=== PATIENT | female | born 1995 | race Caucasian/White ===

== ENCOUNTER 2018-07-08 09:28 | Emergency (ER) | payer BC ==
--- NOTE | 2018-07-08 10:14 | ER Report ---
History and Physical Time Seen By MD: 09:40 Hx. of Stated Complaint: FOUND OUT SHE WAS LAST WEEK, LMP 05/14, started bleeding last evening with worsening over the night and decrease this a.m. HPI/ROS CHIEF COMPLAINT: vaginal bleeding HISTORY OF PRESENT ILLNESS: Pt is G1 LMP 13 May who presents with vaginal ble eding and mild cramping since last night. She is spotting, has gone through 1 pad, with mild cramping that is improving. No change in urination, no diarrhea/constipation. No nausea/vomiting. No prior STI's, no hx clotting in family. REVIEW OF SYSTEMS: Constitutional: No fever, no chills. Eyes: No discharge. ENT: No sore throat. Cardiovascular: No chest pain, no palpitations. Respiratory: No cough, no shortness of breath. Gastrointestinal: No abdominal pain, no vomiting. Genitourinary: No hematuria. Musculoskeletal: No back pain. Skin: No rashes. Neurological: No headache. Remainder of the 14 system rev: Yes Allergies: Coded Allergies: No Known Drug Allergies (Unverified , 07/08/18) Reviewed Nurses Notes: Yes Hx Smoking: No Constitutional Vital Sign - Last 24 Hours 07/08/18 07/08/18 07/08/18 07/08/18 09:28 09:31 09:36 09:42 Temp 98.3 Pulse ??? 93 Resp 16 B/P (MAP) 124/74 (91) 140/88 (105) 140/88 Pulse Ox 96 O2 Delivery Room Air 07/08/18 07/08/18 07/08/18 07/08/18 09:43 09:58 10:02 10:13 Pulse 104 95 94 B/P (MAP) 108/76 (87) Pulse Ox 96 97 97 07/08/18 07/08/18 07/08/18 07/08/18 10:28 10:30 10:43 11:21 Pulse 84 96 B/P (MAP) 103/71 (82) 122/60 (80) Pulse Ox 97 97 Physical Exam General Appearance: The patient is alert, has no immediate need for airway protection and no signs of toxicity. [ ] Eyes: Pupils equal and round no pallor or injection. ENT, Mouth: Mucous membranes are moist. Respiratory: There are no retractions, lungs are clear to auscultation. Cardiovascular: Regular rate and rhythm. Gastrointestinal: Abdomen is soft and non tender, no masses, bowel sounds normal. Neurological: alert, oriented, nad Skin: Warm and dry, no rashes. Musculoskeletal: Extremities are nontender, nonswollen and have full range of motion. - moderate blood in vault, some extruding from os; os closed. No masses, or adnex ttp DIFFERENTIAL DIAGNOSIS: After history and physical exam differential diagnosis was considered for ectopic, miscarriage, sti or other emergent etiology Medical Decision Making Data Points Result Diagram: 07/08/18 1000 Laboratory Hematology Test 07/08/18 10:00 07/08/18 11:22 Red Blood Count 5.01 M/uL (4.17-5.56) Mean Corpuscular Volume 94.8 fL (80.0-96.0) Mean Corpuscular Hemoglobin 32.6 pg (26.0-33.0) Mean Corpuscular Hemoglobin Concent 34.4 g/dL (32.0-36.0) Red Cell Distribution Width 13.6 % (11.5-14.5) Mean Platelet Volume 9.3 fL (7.2-11.1) Neutrophils (%) (Auto) 69.1 % (39.4-72.5) Lymphocytes (%) (Auto) 23.2 % (17.6-49.6) Monocytes (%) (Auto) 7.0 % (4.1-12.4) Eosinophils (%) (Auto) 0.4 % (0.4-6.7) Basophils (%) (Auto) 0.3 % (0.3-1.4) Nucleated RBC Relative Count (auto) 0.0 /100WBC Neutrophils # (Auto) 4.7 K/uL (2.0-7.4) Lymphocytes # (Auto) 1.6 K/uL (1.3-3.6) Monocytes # (Auto) 0.5 K/uL (0.3-1.0) Eosinophils # (Auto) 0.0 K/uL (0.0-0.5) Basophils # (Auto) 0.0 K/uL (0.0-0.1) Nucleated RBC Absolute Count (auto) 0.00 K/uL Human Chorionic Gonadotropin, Quant 213 mIU/ml Urine Color Yellow Urine Clarity Clear Urine pH 7.0 pH (4.8-9.5) Urine Specific [place] 1.013 Urine Protein Negative mg/dL (NEGATIVE) Urine Glucose (UA) Negative mg/dL (NEGATIVE) Urine Ketones Negative mg/dL (NEGATIVE) Urine Blood Moderate (NEGATIVE) Urine Nitrite Negative (NEGATIVE) Urine Bilirubin Negative (NEGATIVE) Urine Urobilinogen Negative mg/dL (0.2-1.9) Urine Leukocyte Esterase Negative (NEGATIVE) Urine RBC <1 /HPF (0-2/HPF) Urine WBC 1 /HPF (0-5/HPF) Urine Squamous Epithelial Cells Many /LPF (</=FEW) Urine Bacteria Few /HPF (NONE-FEW) Urine Mucus Few /HPF (NONE-FEW) Chemistry Test 07/08/18 10:00 07/08/18 11:22 White Blood Count 6.9 k/uL (4.5-11.0) Red Blood Count 5.01 M/uL (4.17-5.56) Hemoglobin 16.4 g/dL (12.0-16.0) Hematocrit 47.5 % (34.0-47.0) Mean Corpuscular Volume 94.8 fL (80.0-96.0) Mean Corpuscular Hemoglobin 32.6 pg (26.0-33.0) Mean Corpuscular Hemoglobin Concent 34.4 g/dL (32.0-36.0) Red Cell Distribution Width 13.6 % (11.5-14.5) Platelet Count 204 K/uL (150-450) Mean Platelet Volume 9.3 fL (7.2-11.1) Neutrophils (%) (Auto) 69.1 % (39.4-72.5) Lymphocytes (%) (Auto) 23.2 % (17.6-49.6) Monocytes (%) (Auto) 7.0 % (4.1-12.4) Eosinophils (%) (Auto) 0.4 % (0.4-6.7) Basophils (%) (Auto) 0.3 % (0.3-1.4) Nucleated RBC Relative Count (auto) 0.0 /100WBC Neutrophils # (Auto) 4.7 K/uL (2.0-7.4) Lymphocytes # (Auto) 1.6 K/uL (1.3-3.6) Monocytes # (Auto) 0.5 K/uL (0.3-1.0) Eosinophils # (Auto) 0.0 K/uL (0.0-0.5) Basophils # (Auto) 0.0 K/uL (0.0-0.1) Nucleated RBC Absolute Count (auto) 0.00 K/uL Human Chorionic Gonadotropin, Quant 213 mIU/ml Urine Color Yellow Urine Clarity Clear Urine pH 7.0 pH (4.8-9.5) Urine Specific [place] 1.013 Urine Protein Negative mg/dL (NEGATIVE) Urine Glucose (UA) Negative mg/dL (NEGATIVE) Urine Ketones Negative mg/dL (NEGATIVE) Urine Blood Moderate (NEGATIVE) Urine Nitrite Negative (NEGATIVE) Urine Bilirubin Negative (NEGATIVE) Urine Urobilinogen Negative mg/dL (0.2-1.9) Urine Leukocyte Esterase Negative (NEGATIVE) Urine RBC <1 /HPF (0-2/HPF) Urine WBC 1 /HPF (0-5/HPF) Urine Squamous Epithelial Cells Many /LPF (</=FEW) Urine Bacteria Few /HPF (NONE-FEW) Urine Mucus Few /HPF (NONE-FEW) Urinalysis Test 07/08/18 11:22 Urine Color Yellow Urine Clarity Clear Urine pH 7.0 pH (4.8-9.5) Urine Specific [place] 1.013 Urine Protein Negative mg/dL (NEGATIVE) Urine Glucose (UA) Negative mg/dL (NEGATIVE) Urine Ketones Negative mg/dL (NEGATIVE) Urine Blood Moderate (NEGATIVE) Urine Nitrite Negative (NEGATIVE) Urine Bilirubin Negative (NEGATIVE) Urine Urobilinogen Negative mg/dL (0.2-1.9) Urine Leukocyte Esterase Negative (NEGATIVE) Urine RBC <1 /HPF (0-2/HPF) Urine WBC 1 /HPF (0-5/HPF) Urine Squamous Epithelial Cells Many /LPF (</=FEW) Urine Bacteria Few /HPF (NONE-FEW) Urine Mucus Few /HPF (NONE-FEW) ED Course/Re-evaluation ED Course Pt hd stable, comfortable in ED; ED eval to r/o miscarriage, ectopic. US ordered/ in conj with quant, much more likely clinically to show g sac and corpus luteum cyst, though note radiologist read of r ov ectopic and pseudogest sac in differential. Therefore, pt instructed to f/u in 2 d for rpt quant and us as nec; she has ob in [facility]; if pt unable to f/u in this timeframe, she is instructed to return here if worse at any time or if unable to arrange f/u. Pt understands all. Rhogam administered due to neg rh factor. Decision to Disposition Date: Jul 08, 2018 Decision to Disposition Time: 12:16 Depart Departure Latest Vital Signs Vital Signs Date Time Temp Pulse Resp B/P (MAP) Pulse Ox O2 Delivery O2 Flow Rate FiO2 07/08/18 11:21 122/60 (80) 07/08/18 10:43 96 97 07/08/18 09:42 98.3 16 Room Air Impression: Primary Impression: Threatened miscarriage Condition: Improved Disposition: HOME OR SELF-CARE Patient Instructions: Threatened Miscarriage (ED) Additional Instructions: As we discussed, your ultrasound shows a possible small early gestational sac, and your quant hCG level is 213. It is likely that you are experiencing a miscarriage, however it is possible that this is consistent with a very early . It is less possible that this is a outside of uterus, or an ectopic . Therefore it is very important that you all your OB on Monday to arrange follow-up and repeat Quant testing as well as repeat ultrasound. If unable to arrange this in the next 2-3 days, or if symptoms worsen at any time, I recommend you return here immediately for further evaluation. BRYON BENOIT MD Jul 08, 2018 10:14
[2018-07-08 10:23] LABS: PLATELET COUNT, AUTOMATED 204 K/uL (150-450)
--- NOTE | 2018-07-08 12:08 | RADIOLOGY IMAGING REPORT ---
FACILITY: [facility] [place] PATIENT NAME: Amy Denney : 1995 MR: [id number] V: [id number] EXAM DATE: ORDERING PHYSICIAN: BRYON BENOIT TECHNOLOGIST: Location: [facility] Patient: Amy Denney : 1995 Visit/Account:[id number] Date of Sevice: 07/08/2018 1st trimester obstetric ultrasound Comparison: None Available History: Vaginal bleeding. LMP: 05/14/2018. Gestational age based on LMP: 7 weeks, 6 days. Findings: Standard endovaginal obstetric ultrasound with color flow and spectral analysis. Uterus: 2.5 mm fluid collection in the endometrium could be a gestational sac. Gestational age of 4 w eeks, 5 days if this is a gestational sac. No yolk sac or pole. Small nabothian cyst. The uteru s measures 7.5 x 3.3 x 5.4 cm. Adnexa: Right ovary: 3.8 x 3.0 x 2.1 cm Left ovary: 3.0 x 2.6 x 2.0 cm Small mass in the right ovary with peripheral blood flow. Normal blood flow. Free fluid: None Urinary bladder: Empty IMPRESSION: Small mass in the right ovary with peripheral blood flow. 2.5 mm fluid collection in the endometrium. No free fluid. The differential diagnosis includes right ovarian ectopic with pseudogestational sac and gestational sac with corpus luteum in the right ovary. Gestational sac and right ovarian corpus luteum are much more likely. Report Dictated By: Jose Roberto Abdalla MD at 07/08/2018 11:55 AM Report E-Signed By: Jose Roberto Abdalla MD at 07/08/2018 12:04 PM WSN:[id number]
[2018-07-08 12:41] VITALS: BP 114/76
== END 2018-07-08 12:59 | disposition home or self-care (01) ==
LOC: ER 10:04
DX: O20.0 Threatened abortion (principal); Z3A.01 Less than 8 weeks gestation of pregnancy
CPT/HCPCS: 76817; 81001; 84702; 85025; 86900; 86901; 87081; 99284; J2791

== ENCOUNTER 2018-07-09 19:52 | Emergency (ER) | payer BC ==
--- NOTE | 2018-07-09 19:57 | ER Report ---
History and Physical Time Seen By MD: 19:56 HPI/ROS CHIEF COMPLAINT: Threatened miscarriage HISTORY OF PRESENT ILLNESS: Patient is a 22-year-old female who is with last menstrual period of May 14 who initially presented to the emergency department on July 08 with symptoms of bleeding and cramping. Patient was found to be Rh- and was given program at this visit. She had an ultrasound which was read as possible small early gestational sac and a beta-hCG G Quant level of 213. It was felt that she was likely having a miscarriage but it was unclear if this still could represent early or less likely ectopic . She was instructed to follow up with her OB in [place] on Monday. Return to the emergency department the next 2-3 days if her symptoms at any time worsened. Patient did see her [employer] today and was felt that she still could have either have an early or possible threatened miscarriage. She was given instructions to return if her symptoms worsened. This evening she had an increase in cramping and then had heavy vaginal bleeding with passage of "tissue". The patient and did not keep the tissue and actually "threw it away". Since passing the tissue and blood patient's cramping has significantly subsided and bleeding is decreasing. Patient offers no other complaints at this time. REVIEW OF SYSTEMS: Constitutional: No fever, no chills. Eyes: No discharge. ENT: No sore throat. Cardiovascular: No chest pain, no palpitations. Respiratory: No cough, no shortness of breath. Gastrointestinal: No abdominal pain, no vomiting. : Increased vaginal bleeding and passing of tissue Genitourinary: No hematuria. Allergies: Coded Allergies: No Known Drug Allergies (Unverified , 07/09/18) Home Meds No Active Prescriptions or Reported Meds Past Medical/Surgical History Noncontributory towards the chief complaint Hx Smoking: No Hx Substance Use Disorder: No Hx Alcohol Use: No Constitutional Physical Exam General/Constitutional: Patient is awake, alert, nontoxic and in no acute respiratory distress. Neck: Supple, no adenopathy. Cardiovascular: Heart is regular rate and rhythm without audible murmurs, rubs or gallops. Pulmonary: Lungs are clear to auscultation bilaterally. There are no wheezes, rales, or rhonchi. Chest rise is symmetrical Abdomen: Soft, nontender, no guarding or peritoneal signs. Extremities: No gross deformities, No peripheral cyanosis. Able to move all 4 extremities. Neuro: Alert and oriented X3, Skin: No rashes, skin is warm dry and well perfused. Medical Decision Making Data Points Laboratory Hematology Test 07/09/18 20:02 Red Blood Count 4.93 M/uL (4.17-5.56) Mean Corpuscular Volume 94.1 fL (80.0-96.0) Mean Corpuscular Hemoglobin 32.5 pg (26.0-33.0) Mean Corpuscular Hemoglobin Concent 34.5 g/dL (32.0-36.0) Red Cell Distribution Width 13.5 % (11.5-14.5) Mean Platelet Volume 9.6 fL (7.2-11.1) Neutrophils (%) (Auto) 54.8 % (39.4-72.5) Lymphocytes (%) (Auto) 36.1 % (17.6-49.6) Monocytes (%) (Auto) 7.1 % (4.1-12.4) Eosinophils (%) (Auto) 1.1 % (0.4-6.7) Basophils (%) (Auto) 0.9 % (0.3-1.4) Nucleated RBC Relative Count (auto) 0.0 /100WBC Neutrophils # (Auto) 4.2 K/uL (2.0-7.4) Lymphocytes # (Auto) 2.8 K/uL (1.3-3.6) Monocytes # (Auto) 0.5 K/uL (0.3-1.0) Eosinophils # (Auto) 0.1 K/uL (0.0-0.5) Basophils # (Auto) 0.1 K/uL (0.0-0.1) Nucleated RBC Absolute Count (auto) 0.00 K/uL Human Chorionic Gonadotropin, Quant 113 mIU/ml Chemistry Test 07/09/18 20:02 White Blood Count 7.7 k/uL (4.5-11.0) Red Blood Count 4.93 M/uL (4.17-5.56) Hemoglobin 16.0 g/dL (12.0-16.0) Hematocrit 46.4 % (34.0-47.0) Mean Corpuscular Volume 94.1 fL (80.0-96.0) Mean Corpuscular Hemoglobin 32.5 pg (26.0-33.0) Mean Corpuscular Hemoglobin Concent 34.5 g/dL (32.0-36.0) Red Cell Distribution Width 13.5 % (11.5-14.5) Platelet Count 218 K/uL (150-450) Mean Platelet Volume 9.6 fL (7.2-11.1) Neutrophils (%) (Auto) 54.8 % (39.4-72.5) Lymphocytes (%) (Auto) 36.1 % (17.6-49.6) Monocytes (%) (Auto) 7.1 % (4.1-12.4) Eosinophils (%) (Auto) 1.1 % (0.4-6.7) Basophils (%) (Auto) 0.9 % (0.3-1.4) Nucleated RBC Relative Count (auto) 0.0 /100WBC Neutrophils # (Auto) 4.2 K/uL (2.0-7.4) Lymphocytes # (Auto) 2.8 K/uL (1.3-3.6) Monocytes # (Auto) 0.5 K/uL (0.3-1.0) Eosinophils # (Auto) 0.1 K/uL (0.0-0.5) Basophils # (Auto) 0.1 K/uL (0.0-0.1) Nucleated RBC Absolute Count (auto) 0.00 K/uL Human Chorionic Gonadotropin, Quant 113 mIU/ml ED Course/Re-evaluation ED Course 07/09/2018 8:11:29 pm patient with likely completed AB at this time. We'll repeat beta hCG Quant level. Patient did receive Ro Zoey on Monday. History is certainly consistent with a miscarriage. Patient is hemodynamically stable plan at this time will be repeat blood test checking hormone levels and likely discharge home with close follow-up with OB. 07/09/2018 9:30:40 pm hCG Quant has decreased by approximately 50% which be consistent with miscarriage. Beta Quant today was 113. Plan at this time will be discharged home patient was given anticipatory guidance for follow-up. Decision to Disposition Date: Jul 09, 2018 Decision to Disposition Time: 21:31 Depart Departure Latest Vital Signs Impression: Primary Impression: Complete Condition: Improved Disposition: HOME OR SELF-CARE New Scripts No Active Prescriptions or Reported Meds Departure Forms: ER Transition Record, Medications Reconciliation, Patient Portal Information Patient Instructions: Miscarriage (ED) Additional Instructions: It is very likely that you had a miscarriage this evening. Your beta Quant today is 113. You should call your OB doctor tomorrow and give them this information including your beta Quant number. You should also ask about further follow-up instructions. If it any point the vaginal bleeding worsens or you have increasi ng pain or if you develop fever he should return to the emergency department immediately for further evaluation. BRYON FLAHERTY MD Jul 09, 2018 19:57
[2018-07-09 20:37] LABS: PLATELET COUNT, AUTOMATED 218 K/uL (150-450)
[2018-07-09 21:00] VITALS: BP 113/65
== END 2018-07-09 21:44 | disposition home or self-care (01) ==
LOC: ER 20:13
DX: O03.9 Complete or unspecified spontaneous abortion without complication (principal); Z3A.08 8 weeks gestation of pregnancy
CPT/HCPCS: 84702; 85025; 99282